=== PATIENT | male | born 1975 | race Caucasian/White ===

== ENCOUNTER 2021-10-16 11:22 | Emergency (ER) | payer MEDICAID ==
[~2021-10-16] VITALS: Ht 170.2 cm; Wt 91.2 kg
[~2021-10-16 11:22] MED LIST: ASPI-1822 PO; DIGO-119 PO; METO25TA PO
[2021-10-16 11:26] VITALS: BP 150/89
--- NOTE | 2021-10-16 11:26 | NUR ---
Patient ambulated to bed 11 for bedside triage.
--- NOTE | 2021-10-16 11:35 | NUR ---
45 y/o M BIB self c/o headache and chills 30-40 minutes prior to arrival while working on vehicle. Patient A&Ox4, ambulatory, presents with body tremors states he has chills. Patient reports headache 5/10 pain at this time. Pt reports being admitted here 1 month ago for atrial fibrillation in the 150's. Patient denies chest pain, SOB, blurry vision, injury, abdominal pain, n/v/d, dysuria. night monitor in place. HR 103 irregular. Bed locked in lowest position, side rails x 1. PMH: a-fib Meds: unable to recall, per EMR: digoxin, metoprolol, ASA NKDA
--- NOTE | 2021-10-16 12:33 | NUR ---
Repeat oral temperature 102.1. Orders to be placed
[2021-10-16] MEDS ORDERED: ACETAMINOPHEN EXTRA STRENGTH 500 MG TAB PO ONE (12:35)
--- NOTE | 2021-10-16 12:39 | NUR ---
COVID kirti and influenza swabs collected, handed to CPT Lore at ER bedside
[2021-10-16] MEDS ORDERED: TAM75 PO (13:34)
[2021-10-16] MEDS ORDERED: ONDA-188 PO (13:34)
[2021-10-16 13:53] VITALS: BP 111/70
--- NOTE | 2021-10-16 14:20 | NUR ---
Repeat oral temperature 100.1. Dr. Martinez made aware
--- NOTE | 2021-10-16 14:38 | NUR ---
Patient discharged with v/s stable. Written and verbal after care instructions given and explained. Patient alert, oriented and verbalized understanding of instructions. Ambulatory with steady gait. All questions addressed prior to discharge. ID band removed. Patient advised to follow up with PMD. Rx of Tamiflu, Zofran ODT given. Patient educated on indication of medication including possible reaction and side effects. Opportunity to ask questions provided and answered. Lab copies handed to patient.
== END 2021-10-16 14:38 | disposition home or self-care (01) ==
LOC: MED 11:22
DX: I48.20 Chronic atrial fibrillation, unspecified (principal); Z20.822 Contact with and (suspected) exposure to COVID-19; J10.1 Influenza due to other identified influenza virus with other respiratory manifestations; Z72.89 Other problems related to lifestyle
CPT/HCPCS: 93005; 99284